=== PATIENT | male | born 1950 | race Caucasian/White ===

== ENCOUNTER 2024-05-11 21:47 | Inpatient (IN) | payer MEDICARE ==
[2024-05-11 22:14] LABS: BASOPHILS ABSOLUTE AUTO 0.03 K/uL (0.00-0.20); BASOPHILS PERCENT AUTO 0.2 % (0.0-2.0); EOSINOPHILS ABSOLUTE AUTO 0.01 K/uL (0.00-0.50); EOSINOPHILS PERCENT AUTO 0.1 % (0.0-5.0); HEMATOCRIT 47.5 % (39.0-49.0); HEMOGLOBIN 16.2 g/dL (13.1-16.8); IMMATURE GRAN ABSOLUTE AUTO 0.05 10^3/uL (0.00-0.50); IMMATURE GRAN PERCENT AUTO 0.4 % (0.0-5.0); LYMPHOCYTES ABSOLUTE AUTO 0.84 K/uL (0.50-3.50); LYMPHOCYTES PERCENT AUTO 6.2 % (10.0-50.0); MEAN CORPUSCULAR HEMOGLOBIN 35.1 pg (28.2-33.3); MEAN CORPUSCULAR HGB CONC 34.1 g/dL (31.7-36.0); MEAN CORPUSCULAR VOLUME 102.8 fL (84.0-98.0); MONOCYTES ABSOLUTE AUTO 1.31 K/uL (0.00-1.00); MONOCYTES PERCENT AUTO 9.7 % (2.0-14.0); NEUTROPHILS ABSOLUTE AUTO 11.27 K/uL (1.40-7.00); NEUTROPHILS PERCENT AUTO 83.4 % (45.0-80.0); PLATELET COUNT,PLT 134 K/uL (150-350); RED BLOOD CELL COUNT 4.62 M/uL (4.33-5.41); RED CELL DISTRIBUTION WIDTH 13.1 % (11.2-14.1); WHITE BLOOD CELL COUNT,WBC 13.5 K/uL (4.0-10.2)
[2024-05-11 22:28] LABS: INR 2.6 (0.9-1.1)
[2024-05-11 22:35] LABS: ALANINE AMINOTRANSFERASE,ALT 18 U/L (12-78); ALBUMIN 3.5 g/dL (3.4-5.0); ALKALINE PHOSPHATASE 55 IU/L (46-116); ASPARTATE AMNIOTRANSFERASE,AST 29 U/L (15-37); BILIRUBIN TOTAL 1.9 mg/dL (0.2-1.0); BLOOD UREA NITROGEN,BUN 32 mg/dL (7-18); CALCIUM 9.4 mg/dL (8.5-10.1); CARBON DIOXIDE,CO2 20.7 mmol/L (21.0-32.0); CHLORIDE,CL 103 mmol/L (98-107); CREATININE 1.66 mg/dL (0.51-1.17); GLUCOSE RANDOM 132 mg/dL (70-99); POTASSIUM,K 4.7 mmol/L (3.5-5.1); PRO B-TYPE NATRIUR PEPT,BNPPRO 10540 pg/mL (0-125); PROTEIN TOTAL,TP 7.8 g/dL (6.4-8.2); SODIUM,NA 139 mmol/L (136-145)
[2024-05-11 22:36] LABS: LACTIC ACID 2.5 mmol/L (0.4-2.0)
[2024-05-11 22:38] LABS: ESTIMATED GFR 43 mL/min (>=60)
[2024-05-11 22:50] LABS: APPEARANCE,URINE SLIGHTLY CLOUDY; BILIRUBIN,URINE NEGATIVE (NEGATIVE); COLOR,URINE YELLOW; GLUCOSE,URINE NEGATIVE (NEGATIVE); KETONES,URINE NEGATIVE (NEGATIVE); LEUKOCYTE ESTERASE,URINE NEGATIVE (NEGATIVE); NITRITE,URINE NEGATIVE (NEGATIVE); OCCULT BLOOD,URINE MODERATE (NEGATIVE); PH,URINE 5.5 (5.0-9.0); PROTEIN,URINE >=300 mg/dL (NEGATIVE)
[2024-05-11 22:59] LABS: BACTERIA,URINE FEW /HPF (NONE TO FEW); EPITHELIAL CELLS,URINE RARE /LPF; RBC,URINE 20-30 /HPF
[2024-05-11] MEDS ORDERED: Take Home: Albuterol 6.7 GM Inhaler, 1 Inhaler Pack INH PRN (23:36)
[2024-05-12 00:33] LABS: APPEARANCE,URINE SLIGHTLY CLOUDY; BILIRUBIN,URINE SMALL (NEGATIVE); COLOR,URINE YELLOW; GLUCOSE,URINE NEGATIVE (NEGATIVE); KETONES,URINE TRACE mg/dL (NEGATIVE); LEUKOCYTE ESTERASE,URINE TRACE (NEGATIVE); NITRITE,URINE NEGATIVE (NEGATIVE); OCCULT BLOOD,URINE MODERATE (NEGATIVE); PH,URINE 5.5 (5.0-9.0); PROTEIN,URINE 100 mg/dL (NEGATIVE)
[2024-05-12 00:47] LABS: BACTERIA,URINE FEW /HPF (NONE TO FEW); EPITHELIAL CELLS,URINE FEW /LPF; HYALINE CASTS,URINE OCCASIONAL
[2024-05-12] MEDS: Albuterol/Ipratropium 3.0-0.5 MG/3 ML Neb Soln NEB ONE ×2 (02:17)
[2024-05-12] MEDS: Warfarin 5 MG Tab PO SCH ×2 (02:21→17:52)
[2024-05-12] MEDS: Acetaminophen/HYDROcodone 325-5 MG Tab PO PRN (03:40)
[2024-05-12] MEDS: Cefepime 2 GM in Sodium Chloride 0.9% 100 ML IV ONE (04:07)
[2024-05-12] MEDS: Acetaminophen 325 MG Tab PO ONE (04:07)
[2024-05-12 07:16] LABS: BASOPHILS ABSOLUTE AUTO 0.03 K/uL (0.00-0.20); BASOPHILS PERCENT AUTO 0.2 % (0.0-2.0); HEMATOCRIT 50.5 % (39.0-49.0); HEMOGLOBIN 16.8 g/dL (13.1-16.8); IMMATURE GRAN ABSOLUTE AUTO 0.06 10^3/uL (0.00-0.50); IMMATURE GRAN PERCENT AUTO 0.4 % (0.0-5.0); LYMPHOCYTES PERCENT AUTO 5.3 % (10.0-50.0); MEAN CORPUSCULAR HEMOGLOBIN 34.6 pg (28.2-33.3); MEAN CORPUSCULAR HGB CONC 33.3 g/dL (31.7-36.0); MEAN CORPUSCULAR VOLUME 103.9 fL (84.0-98.0); MONOCYTES PERCENT AUTO 7.2 % (2.0-14.0); NEUTROPHILS ABSOLUTE AUTO 13.22 K/uL (1.40-7.00); NEUTROPHILS PERCENT AUTO 86.9 % (45.0-80.0); PLATELET COUNT,PLT 126 K/uL (150-350); RED BLOOD CELL COUNT 4.86 M/uL (4.33-5.41); RED CELL DISTRIBUTION WIDTH 13.1 % (11.2-14.1); WHITE BLOOD CELL COUNT,WBC 15.2 K/uL (4.0-10.2)
[2024-05-12] MEDS: Multivitamin Tab PO SCH (07:17)
[2024-05-12] MEDS: Atenolol 25 MG Tab PO SCH (07:18)
[2024-05-12] MEDS: Lisinopril 10 MG Tab PO SCH (07:18)
[2024-05-12] MEDS: levETIRAcetam 500 MG Tab PO SCH (07:19)
[2024-05-12] MEDS: Gabapentin 300 MG Cap PO SCH (07:19)
[2024-05-12] MEDS: metFORMIN 500 MG Tab PO SCH (07:20)
[2024-05-12] MEDS: Formoterol/Mometasone 200-5 MCG 8.8 GM Inhaler INH SCH (07:20)
[2024-05-12] MEDS: Nicotine 7 MG/24 Hr Patch TRDERM SCH (07:21)
[2024-05-12] MEDS: Acetaminophen 650 MG Tab.ER PO SCH (07:21)
[2024-05-12 07:45] LABS: CALCIUM 9.1 mg/dL (8.5-10.1); CARBON DIOXIDE,CO2 26.3 mmol/L (21.0-32.0); CREATININE 1.63 mg/dL (0.51-1.17); EST CRCL DRUG DOSING (CG) 46.93 mL/min; MAGNESIUM 1.7 mg/dL (1.8-2.4); POTASSIUM,K 5.3 mmol/L (3.5-5.1)
[2024-05-12 07:56] LABS: LACTIC ACID 1.3 mmol/L (0.4-2.0)
[2024-05-12 07:58] LABS: INR 1.9 (0.9-1.1); PROTHROMBIN TIME 18.4 SEC (9.0-11.1)
[2024-05-12] MEDS ORDERED: Cefepime 1 GM in Sodium Chloride 0.9% 100 ML IV SCH (08:00)
[2024-05-12] MEDS: Nystatin Topical Powder 15 GM Bottle TOP PRN (08:37)
[2024-05-12] MEDS: Magnesium Chloride 64 MG Tab.ER PO SCH (12:32)
[2024-05-12 12:37] LABS: BASOPHILS ABSOLUTE AUTO 0.02 K/uL (0.00-0.20); BASOPHILS PERCENT AUTO 0.1 % (0.0-2.0); HEMATOCRIT 47.9 % (39.0-49.0); HEMOGLOBIN 16.1 g/dL (13.1-16.8); IMMATURE GRAN ABSOLUTE AUTO 0.06 10^3/uL (0.00-0.50); IMMATURE GRAN PERCENT AUTO 0.4 % (0.0-5.0); LYMPHOCYTES ABSOLUTE AUTO 0.67 K/uL (0.50-3.50); LYMPHOCYTES PERCENT AUTO 3.9 % (10.0-50.0); MEAN CORPUSCULAR HEMOGLOBIN 34.3 pg (28.2-33.3); MEAN CORPUSCULAR HGB CONC 33.6 g/dL (31.7-36.0); MEAN CORPUSCULAR VOLUME 102.1 fL (84.0-98.0); MONOCYTES ABSOLUTE AUTO 1.39 K/uL (0.00-1.00); MONOCYTES PERCENT AUTO 8.1 % (2.0-14.0); NEUTROPHILS PERCENT AUTO 87.5 % (45.0-80.0); PLATELET COUNT,PLT 121 K/uL (150-350); RED BLOOD CELL COUNT 4.69 M/uL (4.33-5.41); WHITE BLOOD CELL COUNT,WBC 17.1 K/uL (4.0-10.2)
[2024-05-12 12:41] LABS: INR 1.8 (0.9-1.1); PROTHROMBIN TIME 17.2 SEC (9.0-11.1)
[2024-05-12 12:43] LABS: CREATININE 1.58 mg/dL (0.51-1.17); EST CRCL DRUG DOSING (CG) 48.41 mL/min
[2024-05-12 12:44] LABS: LACTIC ACID 1.3 mmol/L (0.4-2.0)
[2024-05-12] MEDS ORDERED: Melatonin 3 MG Tab PO PRN (13:59)
[2024-05-12] MEDS: Cefepime 2 GM in Sodium Chloride 0.9% 100 ML IV SCH (15:17)
[2024-05-12] MEDS: Sodium Chloride 0.9% 10 ML Syringe FLUSH PRN (15:21)
[2024-05-12] MEDS ORDERED: LORazepam 2 MG/ML SDV IVPUSH PRN (19:09)
[2024-05-12] MEDS: Rosuvastatin 10 MG Tab PO SCH (20:42)
[2024-05-12] MEDS ORDERED: LORazepam 1 MG Tab ONE (23:23)
[2024-05-13] MEDS: LORazepam 1 MG Tab PO ONE (00:36)
[2024-05-13 07:36] LABS: BASOPHILS ABSOLUTE AUTO 0.02 K/uL (0.00-0.20); BASOPHILS PERCENT AUTO 0.1 % (0.0-2.0); HEMOGLOBIN 16.9 g/dL (13.1-16.8); IMMATURE GRAN ABSOLUTE AUTO 0.05 10^3/uL (0.00-0.50); IMMATURE GRAN PERCENT AUTO 0.3 % (0.0-5.0); LYMPHOCYTES PERCENT AUTO 5.4 % (10.0-50.0); MEAN CORPUSCULAR HEMOGLOBIN 34.6 pg (28.2-33.3); MEAN CORPUSCULAR HGB CONC 33.1 g/dL (31.7-36.0); MEAN CORPUSCULAR VOLUME 104.3 fL (84.0-98.0); MONOCYTES ABSOLUTE AUTO 1.29 K/uL (0.00-1.00); MONOCYTES PERCENT AUTO 7.7 % (2.0-14.0); NEUTROPHILS ABSOLUTE AUTO 14.44 K/uL (1.40-7.00); NEUTROPHILS PERCENT AUTO 86.5 % (45.0-80.0); PLATELET COUNT,PLT 123 K/uL (150-350); RED BLOOD CELL COUNT 4.89 M/uL (4.33-5.41); RED CELL DISTRIBUTION WIDTH 13.1 % (11.2-14.1); WHITE BLOOD CELL COUNT,WBC 16.7 K/uL (4.0-10.2)
[2024-05-13 08:05] LABS: ANION GAP 11.2 meq/L (7-15); CALCIUM 9.3 mg/dL (8.5-10.1); CARBON DIOXIDE,CO2 24.8 mmol/L (21.0-32.0); CREATININE 1.6 mg/dL (0.51-1.17); EST CRCL DRUG DOSING (CG) 47.81 mL/min; MAGNESIUM 1.7 mg/dL (1.8-2.4); POTASSIUM,K 4.7 mmol/L (3.5-5.1)
[2024-05-13] MEDS ORDERED: LORazepam 1 MG Tab PO PRN (08:30)
[2024-05-13 08:42] LABS: INR 1.4 (0.9-1.1); PROTHROMBIN TIME 13.6 SEC (9.0-11.1)
[2024-05-13] MEDS ORDERED: Glucagon,Human Recombinant 1 MG Vial IM PRN (09:39)
[2024-05-13] MEDS ORDERED: 50% Dextrose in Water 50 ML Syringe IVPUSH PRN (09:39)
[2024-05-13] MEDS: Furosemide 40 MG/4 ML VIAL IVPUSH ONE (11:29)
[2024-05-13] MEDS: Warfarin 2.5 MG Tab PO ONE (18:00)
[2024-05-13] MEDS: Enoxaparin 40 MG/0.4 ML Syringe SUBCUT SCH (18:04)
[2024-05-13] MEDS: Insulin Lispro 100 Units/ML 3 ML Vial SUBCUT SCH (18:05)
[2024-05-13] MEDS: Enoxaparin 60 MG/0.6 ML Syringe SUBCUT SCH (20:49)
[2024-05-13] MEDS: Enoxaparin 80 MG/0.8 ML Syringe SUBCUT ONE (21:36)
[2024-05-14 07:48] LABS: BASOPHILS ABSOLUTE AUTO 0.02 K/uL (0.00-0.20); BASOPHILS PERCENT AUTO 0.1 % (0.0-2.0); HEMATOCRIT 47.8 % (39.0-49.0); HEMOGLOBIN 16.2 g/dL (13.1-16.8); IMMATURE GRAN ABSOLUTE AUTO 0.05 10^3/uL (0.00-0.50); IMMATURE GRAN PERCENT AUTO 0.4 % (0.0-5.0); LYMPHOCYTES ABSOLUTE AUTO 0.94 K/uL (0.50-3.50); LYMPHOCYTES PERCENT AUTO 6.8 % (10.0-50.0); MEAN CORPUSCULAR HEMOGLOBIN 34.7 pg (28.2-33.3); MEAN CORPUSCULAR HGB CONC 33.9 g/dL (31.7-36.0); MEAN CORPUSCULAR VOLUME 102.4 fL (84.0-98.0); MONOCYTES ABSOLUTE AUTO 1.09 K/uL (0.00-1.00); MONOCYTES PERCENT AUTO 7.9 % (2.0-14.0); NEUTROPHILS ABSOLUTE AUTO 11.78 K/uL (1.40-7.00); NEUTROPHILS PERCENT AUTO 84.8 % (45.0-80.0); PLATELET COUNT,PLT 145 K/uL (150-350); RED BLOOD CELL COUNT 4.67 M/uL (4.33-5.41); WHITE BLOOD CELL COUNT,WBC 13.9 K/uL (4.0-10.2)
[2024-05-14 08:02] LABS: INR 1.7 (0.9-1.1); PROTHROMBIN TIME 16.6 SEC (9.0-11.1)
[2024-05-14 08:20] LABS: ALBUMIN 2.5 g/dL (3.4-5.0); ANION GAP 11.5 meq/L (7-15); BILIRUBIN TOTAL 1.2 mg/dL (0.2-1.0); CALCIUM 9.1 mg/dL (8.5-10.1); CARBON DIOXIDE,CO2 23.5 mmol/L (21.0-32.0); CREATININE 1.52 mg/dL (0.51-1.17); EST CRCL DRUG DOSING (CG) 50.32 mL/min; MAGNESIUM 1.7 mg/dL (1.8-2.4); POTASSIUM,K 4.1 mmol/L (3.5-5.1); PROTEIN TOTAL,TP 7.4 g/dL (6.4-8.2)
[2024-05-14] MEDS: Amoxicillin/Clavulanate K 875-125 MG Tab PO SCH (10:29)
[2024-05-14] MEDS: Furosemide 40 MG/4 ML VIAL IVPUSH ONE (10:29)
[2024-05-14] MEDS: Warfarin 2.5 MG Tab PO ONE (12:36)
[2024-05-14] MEDS: Warfarin 5 MG Tab PO ONE (17:26)
[2024-05-15 06:58] LABS: BASOPHILS ABSOLUTE AUTO 0.02 K/uL (0.00-0.20); BASOPHILS PERCENT AUTO 0.2 % (0.0-2.0); EOSINOPHILS ABSOLUTE AUTO 0.06 K/uL (0.00-0.50); EOSINOPHILS PERCENT AUTO 0.5 % (0.0-5.0); HEMATOCRIT 49.4 % (39.0-49.0); HEMOGLOBIN 16.7 g/dL (13.1-16.8); IMMATURE GRAN ABSOLUTE AUTO 0.04 10^3/uL (0.00-0.50); IMMATURE GRAN PERCENT AUTO 0.3 % (0.0-5.0); LYMPHOCYTES ABSOLUTE AUTO 0.85 K/uL (0.50-3.50); LYMPHOCYTES PERCENT AUTO 7.3 % (10.0-50.0); MEAN CORPUSCULAR HEMOGLOBIN 34.2 pg (28.2-33.3); MEAN CORPUSCULAR HGB CONC 33.8 g/dL (31.7-36.0); MONOCYTES ABSOLUTE AUTO 0.97 K/uL (0.00-1.00); MONOCYTES PERCENT AUTO 8.3 % (2.0-14.0); NEUTROPHILS ABSOLUTE AUTO 9.74 K/uL (1.40-7.00); NEUTROPHILS PERCENT AUTO 83.4 % (45.0-80.0); PLATELET COUNT,PLT 151 K/uL (150-350); RED BLOOD CELL COUNT 4.89 M/uL (4.33-5.41); RED CELL DISTRIBUTION WIDTH 12.9 % (11.2-14.1); WHITE BLOOD CELL COUNT,WBC 11.7 K/uL (4.0-10.2)
[2024-05-15 07:16] LABS: INR 2.2 (0.9-1.1); PROTHROMBIN TIME 21.5 SEC (9.0-11.1)
[2024-05-15 07:46] LABS: ALBUMIN 2.7 g/dL (3.4-5.0); ANION GAP 12.5 meq/L (7-15); BILIRUBIN TOTAL 1.2 mg/dL (0.2-1.0); CALCIUM 9.1 mg/dL (8.5-10.1); CARBON DIOXIDE,CO2 22.5 mmol/L (21.0-32.0); CREATININE 1.39 mg/dL (0.51-1.17); EST CRCL DRUG DOSING (CG) 55.03 mL/min; POTASSIUM,K 3.9 mmol/L (3.5-5.1); PROTEIN TOTAL,TP 7.6 g/dL (6.4-8.2)
[2024-05-15] MEDS: Warfarin 5 MG Tab PO ONE (17:45)
[2024-05-15 17:48] VITALS: BP 130/60; PULSE 70
== END 2024-05-15 17:54 | disposition swing bed (61) | DRG 683 ==
LOC: LL.ED 21:47 → UNDOADMOB 23:30 → OBSVTOIN 23:30 → LL.MS 23:30
PROVIDERS: ADMIT Physician Assistant; ATTEND Physician Assistant
DX: N17.9 Acute kidney failure, unspecified (principal); N39.0 Urinary tract infection, site not specified; I50.9 Heart failure, unspecified; E11.9 Type 2 diabetes mellitus without complications; Z79.899 Other long term (current) drug therapy; R79.89 Other specified abnormal findings of blood chemistry; R53.1 Weakness; I48.0 Paroxysmal atrial fibrillation; J44.9 Chronic obstructive pulmonary disease, unspecified; G47.33 Obstructive sleep apnea (adult) (pediatric); G89.29 Other chronic pain; M54.9 Dorsalgia, unspecified; E83.42 Hypomagnesemia; Z79.01 Long term (current) use of anticoagulants; Z91.030 Bee allergy status; Z79.4 Long term (current) use of insulin
CPT/HCPCS: 36415; 51702; 71045; 71046; 80048; 80053; 81001; 82565; 82947; 83605; 83735; 83880; 84484; 85025; 85379; 85610; 87040; 87086; 87088; 87186; 87428-QW; 93005; 93010; 93308; 97162-GP; 97165-GO; 97530-GP; 99223; 99232; 99233; 99238; 99285; A9270-GY; J0692; J1650; J1815-GY; J1940; J3475; J3490

== ENCOUNTER 2024-05-15 16:02 | Inpatient (IN) | payer MEDICARE ==
[2024-05-15] MEDS ORDERED: Sodium Chloride 0.9% 10 ML Syringe FLUSH PRN (17:32)
[2024-05-15] MEDS ORDERED: 50% Dextrose in Water 50 ML Syringe IVPUSH PRN (17:32)
[2024-05-15] MEDS ORDERED: Melatonin 3 MG Tab PO PRN (17:32)
[2024-05-15] MEDS ORDERED: LORazepam 2 MG/ML SDV IVPUSH PRN (17:32)
[2024-05-15] MEDS ORDERED: Take Home: Albuterol 6.7 GM Inhaler, 1 Inhaler Pack INH PRN (17:32)
[2024-05-15] MEDS: Amoxicillin 500 MG Cap PO SCH (19:17)
[2024-05-15] MEDS: Warfarin 5 MG Tab **OWN MED PO ONE (19:17)
[2024-05-15] MEDS: ATENOLOL 50 MG PO SCH (19:18)
[2024-05-15] MEDS: Magnesium Chloride 64 MG Tab.ER PO SCH (19:18)
[2024-05-15] MEDS: Gabapentin 300 MG Cap PO SCH (19:18)
[2024-05-15] MEDS: levETIRAcetam 500 MG Tab PO SCH (19:18)
[2024-05-15] MEDS: Lisinopril 10 MG Tab PO SCH (19:18)
[2024-05-15] MEDS: Formoterol/Mometasone 200-5 MCG 8.8 GM Inhaler INH SCH (19:18)
[2024-05-15] MEDS: Acetaminophen 650 MG Tab.ER PO SCH (19:18)
[2024-05-15] MEDS: Acetaminophen 325 MG Tab PO PRN (22:58)
[2024-05-16] MEDS: Multivitamin Tab PO SCH (07:31)
[2024-05-16] MEDS ORDERED: Nicotine 7 MG/24 Hr Patch TRDERM SCH (08:00)
[2024-05-16 08:05] LABS: INR 2.6 (0.9-1.1)
[2024-05-16] MEDS: Warfarin 5 MG Tab PO SCH (18:12)
[2024-05-17 08:55] LABS: INR 2.5 (0.9-1.1); PROTHROMBIN TIME 24.3 SEC (9.0-11.1)
[2024-05-17] MEDS ORDERED: Warfarin 2.5 MG Tab PO ONE (13:00)
[2024-05-17] MEDS: Warfarin 2.5 MG Tab PO ONE (17:46)
[2024-05-17] MEDS ORDERED: Warfarin** 1 MG TABLET PO ONE (18:00)
[2024-05-17] MEDS: Acetaminophen/HYDROcodone 325-5 MG Tab **OWN MED PO PRN (20:57)
[2024-05-18 07:25] LABS: BASOPHILS ABSOLUTE AUTO 0.04 K/uL (0.00-0.20); BASOPHILS PERCENT AUTO 0.4 % (0.0-2.0); EOSINOPHILS ABSOLUTE AUTO 0.27 K/uL (0.00-0.50); EOSINOPHILS PERCENT AUTO 2.7 % (0.0-5.0); HEMATOCRIT 47.3 % (39.0-49.0); IMMATURE GRAN ABSOLUTE AUTO 0.07 10^3/uL (0.00-0.50); IMMATURE GRAN PERCENT AUTO 0.7 % (0.0-5.0); LYMPHOCYTES ABSOLUTE AUTO 1.25 K/uL (0.50-3.50); LYMPHOCYTES PERCENT AUTO 12.5 % (10.0-50.0); MEAN CORPUSCULAR HEMOGLOBIN 34.9 pg (28.2-33.3); MEAN CORPUSCULAR HGB CONC 33.8 g/dL (31.7-36.0); MEAN CORPUSCULAR VOLUME 103.3 fL (84.0-98.0); MONOCYTES ABSOLUTE AUTO 0.72 K/uL (0.00-1.00); MONOCYTES PERCENT AUTO 7.2 % (2.0-14.0); NEUTROPHILS ABSOLUTE AUTO 7.65 K/uL (1.40-7.00); NEUTROPHILS PERCENT AUTO 76.5 % (45.0-80.0); PLATELET COUNT,PLT 212 K/uL (150-350); RED BLOOD CELL COUNT 4.58 M/uL (4.33-5.41)
[2024-05-18 07:38] LABS: INR 2.2 (0.9-1.1); PROTHROMBIN TIME 21.6 SEC (9.0-11.1)
[2024-05-18 08:51] LABS: CALCIUM 9.2 mg/dL (8.5-10.1); CREATININE 1.23 mg/dL (0.51-1.17); EST CRCL DRUG DOSING (CG) 62.19 mL/min; POTASSIUM,K 4.1 mmol/L (3.5-5.1)
[2024-05-18] MEDS ORDERED: Warfarin 2.5 MG Tab PO SCH (18:00)
[2024-05-18] MEDS: Warfarin 2.5 MG Tab**OWN MED PO ONE (18:05)
[2024-05-19] MEDS: Warfarin 5 MG Tab PO ONE (17:10)
[2024-05-19] MEDS ORDERED: Warfarin 2.5 MG Tab**OWN MED PO ONE (18:00)
[2024-05-20 09:18] LABS: INR 2.1
[2024-05-20] MEDS: Warfarin 5 MG Tab PO SCH (17:44)
[2024-05-20] MEDS: Atenolol 25 MG Tab PO SCH (17:47)
[2024-05-21 07:30] LABS: INR 2.1
[2024-05-21] MEDS: Nystatin Topical Powder 15 GM Bottle TOP PRN (23:10)
[2024-05-22 08:51] LABS: INR 1.9 (0.9-1.1)
[2024-05-22] MEDS: Warfarin 2.5 MG Tab PO ONE (17:39)
[2024-05-23] MEDS: Warfarin 2.5 MG Tab PO ONE (18:36)
[2024-05-24 12:36] VITALS: BP 145/96; PULSE 72
== END 2024-05-24 12:13 | disposition home health service (06) | DRG 948 ==
LOC: UNDOADMIN 17:56 → LL.MS 17:56 → LL.SWG 05-19 10:38 → LL.MS 05-19 10:38
PROVIDERS: ADMIT Emergency Medicine; ATTEND Emergency Medicine
DX: R53.1 Weakness (principal); G40.109 Localization-related (focal) (partial) symptomatic epilepsy and epileptic syndromes with simple partial seizures, not intractable, without status epilepticus; I50.9 Heart failure, unspecified; I25.10 Atherosclerotic heart disease of native coronary artery without angina pectoris; G47.33 Obstructive sleep apnea (adult) (pediatric); M48.061 Spinal stenosis, lumbar region without neurogenic claudication; E11.9 Type 2 diabetes mellitus without complications; E66.01 Morbid (severe) obesity due to excess calories; Z86.73 Personal history of transient ischemic attack (TIA), and cerebral infarction without residual deficits; Z68.37 Body mass index [BMI] 37.0-37.9, adult
CPT/HCPCS: 36415; 36416; 80048; 83735; 85025; 85610; 97110-GP; 97164-GP; 97168-GO; 97530-GP; 99316; A9270-GY